=== PATIENT | male | born 1970 | race American Indian/Alaskan Native ===

== ENCOUNTER 2018-09-14 14:15 | Emergency (ER) | payer OTHER ==
[2018-09-14 14:27] VITALS: BP 137/103
[2018-09-14] MEDS ORDERED: IBUPROFEN PO ONE ×2 (14:49→14:52)
--- NOTE | 2018-09-14 14:49 | Emergency Department Report ---
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
--- NOTE | 2018-09-14 15:16 | XRay Report ---
RIGHT FOOT, 3 views: History: Right foot pain. Normal bone mineralization. A nondisplaced fracture is identified at the base of the distal phalanx of the great toe. Intra-articular extension at the interphalangeal joint is noted. No calcified callus. The remaining bony structures and joint spaces are unremarkable. The soft tissues are within normal limits. IMPRESSION: Nondisplaced fracture, distal phalanx, great toe.
--- NOTE | 2018-09-14 15:44 | Emergency Department Report ---
ED Extremity Problem HPI - General Chief complaint: Extremity Injury, Lower Stated complaint: RT FOOT INJURY Time Seen by Provider: 09/14/18 14:46 Source: patient Mode of arrival: Wheelchair Limitations: No Limitations - History of Present Illness Severity scale (0 -10): 7 - Related Data Previous Rx's Medication Instructions Recorded Last Taken Type HYDROcodone/APAP 5-325 [[place] 1 each PO Q6HR PRN #10 tablet 09/14/18 Unknown Rx 5/325] Naproxen [Naprosyn] 500 mg PO BID #20 tablet 09/14/18 Unknown Rx Allergies Allergy/AdvReac Type Severity Reaction Status Date / Time No Known Allergies Allergy Unverified 09/14/18 14:29 ED Review of Systems ROS: Stated complaint: RT FOOT INJURY Other details as noted in HPI ED Past Medical Hx - Past Medical History Previous Medical History?: No - Surgical History Past Surgical History?: No - Social History Smoking Status: Never Smoker Substance Use Type: None - Medications Home Medications: Home Medications Medication Instructions Recorded Confirmed Last Taken Type HYDROcodone/APAP 5-325 [[place] 1 each PO Q6HR PRN #10 tablet 09/14/18 Unknown Rx 5/325] Naproxen [Naprosyn] 500 mg PO BID #20 tablet 09/14/18 Unknown Rx ED Physical Exam - General Limitations: No Limitations ED Course Vital Signs 09/14/18 09/14/18 14:25 14:50 Temperature 98.1 F Pulse Rate 98 H Respiratory 18 18 Rate Blood Pressure 137/103 O2 Sat by Pulse 100 Oximetry ED Medical Decision Making - Radiology Data Radiology results: report reviewed, image reviewed - Differential Diagnosis fracture, sprain Critical care attestation.: If time is entered above; I have spent that time in minutes in the direct care of this critically ill patient, excluding procedure time. ED Disposition Clinical Impression: Nondisplaced fracture of phalanx of toe of right foot Disposition: DC-01 TO HOME OR SELFCARE Is pt being admited?: No Condition: Stable Instructions: Toe Fracture (ED) Prescriptions: Naproxen [Naprosyn] 500 mg PO BID #20 tablet HYDROcodone/APAP 5-325 [[place] 5/325] 1 each PO Q6HR PRN #10 tablet PRN Reason: Pain Referrals: CRIS GAGE MD [Staff Physician] - 3-5 Days Time of Disposition: 15:43
--- NOTE | 2018-09-14 15:50 | Emergency Department Report ---
ED Extremity Problem HPI - General Chief complaint: Extremity Injury, Lower Stated complaint: RT FOOT INJURY Time Seen by Provider: 09/14/18 14:46 Source: patient Mode of arrival: Wheelchair Limitations: No Limitations - History of Present Illness Initial comments: 48 yo male presents to ED with pain to the right great toe. Patient states a lawnmower fell on his foot approximately 45 minutes prior to arrival. MD Complaint: extremity pain -: minutes(s) (45) Location: right, toe Severity scale (0 -10): 7 Quality: aching Consistency: constant Improves with: immobilization Worsens with: weight bearing, palpation Associated Symptoms: denies other symptoms - Related Data Previous Rx's Medication Instructions Recorded Last Taken Type HYDROcodone/APAP 5-325 [[place] 1 each PO Q6HR PRN #10 tablet 09/14/18 Unknown Rx 5/325] Naproxen [Naprosyn] 500 mg PO BID #20 tablet 09/14/18 Unknown Rx Allergies Allergy/AdvReac Type Severity Reaction Status Date / Time No Known Allergies Allergy Unverified 09/14/18 14:29 ED Review of Systems ROS: Stated complaint: RT FOOT INJURY Other details as noted in HPI Comment: All other systems reviewed and negative Musculoskeletal: as per HPI ED Past Medical Hx - Past Medical History Previous Medical History?: No - Surgical History Past Surgical History?: No - Social History Smoking Status: Never Smoker Substance Use Type: None - Medications Home Medications: Home Medications Medication Instructions Recorded Confirmed Last Taken Type HYDROcodone/APAP 5-325 [[place] 1 each PO Q6HR PRN #10 tablet 09/14/18 Unknown Rx 5/325] Naproxen [Naprosyn] 500 mg PO BID #20 tablet 09/14/18 Unknown Rx ED Physical Exam - General Limitations: No Limitations General appearance: alert, in no apparent distress - Head Head exam: Present: atraumatic, normocephalic - Eye Eye exam: Present: normal appearance - ENT ENT exam: Present: mucous membranes moist - Neck Neck exam: Present: normal inspection - Respiratory Respiratory exam: Present: normal lung sounds bilaterally. Absent: respiratory distress - Cardiovascular Cardiovascular Exam: Present: regular rate, normal rhythm - GI/Abdominal GI/Abdominal exam: Absent: distended - Extremities Exam Extremities exam: Present: other (tenderness to right great toe; no lacerations; no significant swelling present) - Neurological Exam Neurological exam: Present: alert, oriented X3. Absent: motor sensory deficit - Psychiatric Psychiatric exam: Present: normal affect, normal mood - Skin Skin exam: Present: warm, dry, intact, normal color. Absent: rash ED Course Vital Signs 09/14/18 09/14/18 14:25 14:50 Temperature 98.1 F Pulse Rate 98 H Respiratory 18 18 Rate Blood Pressure 137/103 O2 Sat by Pulse 100 Oximetry ED Medical Decision Making - Radiology Data Radiology results: report reviewed, image reviewed - Differential Diagnosis fracture, sprain Critical care attestation.: If time is entered above; I have spent that time in minutes in the direct care of this critically ill patient, excluding procedure time. ED Disposition Clinical Impression: Nondisplaced fracture of phalanx of toe of right foot Disposition: - TO HOME OR SELFCARE Is pt being admited?: No Condition: Stable Instructions: Toe Fracture (ED) Prescriptions: Naproxen [Naprosyn] 500 mg PO BID #20 tablet HYDROcodone/APAP 5-325 [[place] 5/325] 1 each PO Q6HR PRN #10 tablet PRN Reason: Pain Referrals: CRIS GAGE MD [Staff Physician] - 3-5 Days
== END 2018-09-14 15:58 | disposition home or self-care (01) ==
LOC: ED 14:15
DX: S92.911A Unspecified fracture of right toe(s), initial encounter for closed fracture (principal); W19.XXXA Unspecified fall, initial encounter; Y93.89 Activity, other specified; Y92.89 Other specified places as the place of occurrence of the external cause; Y99.8 Other external cause status